=== PATIENT | female | born 2000 | race American Indian/Alaskan Native ===

== ENCOUNTER 2021-12-08 19:17 | Emergency (ER) | payer MEDICAID ==
[2021-12-08 20:01] VITALS: BP 113/78
[2021-12-08] MEDS ORDERED: diphenhydrAMINE 25 MG CAP PO ONE (23:08)
[2021-12-08] MEDS ORDERED: ACETAMINOPHEN 500 MG TAB PO ONE (23:09)
[2021-12-08] MEDS ORDERED: METOCLOPRAMIDE 10 MG TAB PO ONE (23:09)
[2021-12-08] MEDS ORDERED: predniSONE 20 MG TAB PO ONE (23:09)
--- NOTE | 2021-12-08 23:35 | Emergency Department Report ---
ED Headache HPI - General Chief Complaint: Headache Stated Complaint: HEADACHE/DIZZY Time Seen by Provider: 12/08/21 23:08 - History of Present Illness Initial Comments: Patient a 21-year-old female who presents for frontal headache x2 days. Headache is similar in location and intensity of the headaches of the past. This is not a thunderclap headache. Patient states some sinus congestion clear rhinorrhea, mild photophobia however no decrease in vision.. There is no ear or throat pain. She denies fall injury or trauma. There is been no fever or chills, no nausea or vomiting. There is no neck pain no numbness or tingling. Patient is ambulatory to baseline per patient. Patient appears nontoxic symptoms are exacerbated by activity and movement. Symptoms are relieved by nothing tried. Allergies/Adverse Reactions: Allergies No Known Allergies Allergy (Verified 12/08/21 20:01) Home Medications: Ambulatory Orders Acetaminophen 1,000 mg PO Q6H PRN #30 cap 12/09/21 Metoclopramide [Reglan] 10 mg PO Q6H PRN #30 tablet 12/09/21 diphenhydrAMINE [Benadryl CAP] 25 mg PO Q6HR PRN #30 capsule 12/09/21 ED Review of Systems ROS: Stated complaint: HEADACHE/DIZZY Other details as noted in HPI Constitutional: denies: chills, fever Eyes: denies: eye pain, eye discharge, vision change ENT: congestion. denies: ear pain, throat pain, hearing loss Respiratory: denies: cough, shortness of breath, wheezing Cardiovascular: denies: chest pain, palpitations Endocrine: no symptoms reported Gastrointestinal: denies: abdominal pain, nausea, vomiting, diarrhea Genitourinary: denies: urgency, dysuria, discharge Musculoskeletal: denies: back pain, joint swelling, arthralgia Skin: denies: rash, lesions Neurological: headache, vertigo. denies: weakness, numbness, paresthesias, confusion Psychiatric: denies: anxiety, depression Hematological/Lymphatic: denies: easy bleeding, easy bruising ED Past Medical Hx - Medications Home Medications: Home Medications Medication Instructions Recorded Confirmed Last Taken Type Acetaminophen 1,000 mg PO Q6H PRN #30 cap 12/09/21 Unknown Rx Metoclopramide [Reglan] 10 mg PO Q6H PRN #30 tablet 12/09/21 Unknown Rx diphenhydrAMINE [Benadryl CAP] 25 mg PO Q6HR PRN #30 capsule 12/09/21 Unknown Rx ED Physical Exam - General Limitations: No Limitations General appearance: alert, in no apparent distress - Head Head exam: Present: normocephalic, normal inspection - Eye Eye exam: Present: normal appearance, PERRL, EOMI. Absent: conjunctival injection, nystagmus Pupils: Present: normal accommodation - ENT ENT exam: Present: normal orophraynx, mucous membranes moist, TM's normal bilaterally - Neck Neck exam: Present: normal inspection, full ROM. Absent: tenderness, meningismus, lymphadenopathy, thyromegaly - Respiratory Respiratory exam: Present: normal lung sounds bilaterally. Absent: respiratory distress, wheezes, stridor - Cardiovascular Cardiovascular Exam: Present: regular rate, normal rhythm, normal heart sounds. Absent: systolic murmur, diastolic murmur, rubs, gallop - GI/Abdominal GI/Abdominal exam: Present: soft, normal bowel sounds. Absent: distended, tenderness - Rectal Rectal exam: Present: deferred - Extremities Exam Extremities exam: Present: normal inspection, full ROM, normal capillary refill. Absent: tenderness - Back Exam Back exam: Present: normal inspection, full ROM. Absent: tenderness, CVA tenderness (R), CVA tenderness (L) - Neurological Exam Neurological exam: Present: alert, oriented X3, CN II-XII intact, normal gait. Absent: motor sensory deficit - Expanded Neurological Exam Expanded Patient oriented to: Present: person, place, time Speech: Present: fluid speech Cranial nerves: EOM's Intact: Normal, Gag Reflex: Normal, Tongue Deviation: Normal, Nystagmus: Normal, Facial Sensation: Normal Cerebellar function: Finger to Nose: Normal, Romberg: Normal Motor strength exam: RUE: 5, LUE: 5, RLE: 5, LLE: 5 DTR: knee (R): 1+, knee (L): 1+ Best Eye Response ([place]): (4) open spontaneously Best Motor Response ([place]): (6) obeys commands Best Verbal Response ([place]): (5) oriented [place] Total: 15 - Psychiatric Psychiatric exam: Present: normal affect, normal mood - Skin Skin exam: Present: warm, dry, intact, normal color. Absent: rash ED Course Vital Signs 12/08/21 20:00 Temperature 98.2 F Pulse Rate 82 Respiratory 18 Rate Blood Pressure 113/78 O2 Sat by Pulse 100 Oximetry ED Medical Decision Making - Medical Decision Making Symptoms improved medications given in ED plan DC to home with prescriptions. Follow-up with your doctor in 2 to 3 days. Return to emergency department should symptoms worsen. Patient verbalized agreement understanding with discharge plan patient DC'd home in stable condition at this time. Critical care attestation.: If time is entered above; I have spent that time in minutes in the direct care of this critically ill patient, excluding procedure time. ED Disposition Clinical Impression: Headache Qualifiers: Headache type: unspecified Headache chronicity pattern: acute headache Intractability: not intractable Qualified Code(s): R51.9 - Headache, unspecified Disposition: HOME / SELF CARE / HOMELESS Is pt being admited?: No Does the pt Need Aspirin: No Condition: Stable Instructions: Migraine Headache Additional Instructions: Take medications as prescribed, follow-up with your doctor in 2 to 3 days. Return to emergency department should symptoms worsen. Prescriptions: Acetaminophen 1,000 mg PO Q6H PRN #30 cap PRN Reason: pain diphenhydrAMINE [Benadryl CAP] 25 mg PO Q6HR PRN #30 capsule PRN Reason: headache Metoclopramide [Reglan] 10 mg PO Q6H PRN #30 tablet PRN Reason: Headache Referrals: DEAN CONNER MD [Primary Care Provider] - 3-5 Days Forms: Work/School Release Form(ED) Time of Disposition: 00:34
== END 2021-12-09 01:06 | disposition home or self-care (01) ==
LOC: ED 19:17
DX: R51.9 Headache, unspecified (principal)
CPT/HCPCS: 99282